=== PATIENT | male | born 1970 | race Caucasian/White ===

== ENCOUNTER → 2017-06-17 | Outpatient (CLI) | payer OTHER ==
--- NOTE | 2017-06-17 10:42 | PCVCIMAG ---
APPROVED REPORT Patient Location: Out-Patient Indications Stenosis Doppler Spectral Velocity Analysis PSV / EDVPSV / EDV ECA (R) 149 / 21 cm/sECA (L) 154 / 31 cm/s dICA (R) 61 / 25 cm/sdICA (L) 70 / 27 cm/s Maritza (R) 78 / 26 cm/smICA (L) 101 / 35 cm/s pICA (R) 79 / 26 cm/spICA (L) 109 / 31 cm/s Bulb (R) 123 / 29 cm/sBulb (L) 104 / 29 cm/s dCCA (R) 104 / 20 cm/sdCCA (L) 115 / 29 cm/s mCCA (R) 104 / 21 cm/smCCA (L) 109 / 30 cm/s Vert (R) 50 / 17 cm/sVert (L) 41 / 14 cm/s Findings The right carotid bulb has mild calcified plaque. The right proximal internal carotid artery shows <40% stenosis. The right common carotid artery shows no significant stenosis. The right external carotid artery shows no significant stenosis. The left carotid bulb has moderately plaque. The left proximal internal carotid artery shows <40% stenosis. The left common carotid artery shows no significant stenosis. The left external carotid artery shows no significant stenosis. Conclusion 1. Right internal carotid artery stenosis (<40%) 2. Left internal carotid artery stenosis (<40%) 3. Antegrade vertebral flow
--- NOTE | 2017-06-17 13:00 | PCVCIMAG ---
APPROVED REPORT Exam: Stress Echocardiogram Indication: ABN Calcium Score, , Hyperlipidemia, Family Hx Patient Location: Echo lab Stress Nurse: Shaneka Thomas RN Status: routine HR: 92 bpm Rhythm: NSR Procedure The patient underwent an Exercise Stress Test using the John Protocol. Blood pressure, heart rate, and EKG were monitored. An Echocardiogram was performed by bench repair technician in four stages in quad fashion. At peak stress, four selected images were obtained and placed side by side with resting images for comparison. Stress Test Details Stress Test: Exercise stress testing was performed using a John protocol. HR Resting HR: 92 bpmMax Heart Rate (APMHR): 175 bpm Max HR Achieved: 169 bpmTarget HR (85% APMHR): 148 bpm % of APMHR: 96 HR response to stress: Normal HR response to stress BP Resting BP: 138/76 mmHg Max BP: 180/102 mmHg ECG Resting ECG: Sinus Bradycardia, Sinus Rhythm Stress ECG: Sinus Rhythm Clinical Reason for Termination: Maximal effort, ST changes Stress Symptoms: Fatigue, Dyspnea Exercise duration: 11 min 14 sec Highest Stage Achieved: Stage 3: 3.4 mph at 14% grade. Exercise capacity: 13.70 METs Overall Exercise Capacity for Age: Normal Pre-Stress Echo The resting Echocardiogram showed normal left ventricular contractility with an estimated Ejection Fraction of about 55-60%. Normal wall motion in all segments on baseline images. Post-Stress Echo The stress Echocardiogram showed normal left ventricular contractility with an estimated Ejection Fraction of about 60-65%. Normal augmentation of wall motion in all segments on post stress images. Conclusion Clinical Response: Non-ischemic Exercise Capacity: Average Stress ECG Response: Non-ischemic Stress Echo Images: Non-ischemic Normal stress echocardiogram with maximal exercise stress. No clinical, EKG or echocardiographic evidence for ischemia. Other Information Study Quality: Good <Conclusion> Normal stress echocardiogram with maximal exercise stress. No clinical, EKG or echocardiographic evidence for ischemia.
== END | disposition home or self-care (01) ==
LOC: PCVCIMAG 09:26
PROVIDERS: ATTEND Internal Medicine Cardiovascular Disease
DX: I65.23 Occlusion and stenosis of bilateral carotid arteries (principal); R93.1 Abnormal findings on diagnostic imaging of heart and coronary circulation; E78.5 Hyperlipidemia, unspecified; I25.10 Atherosclerotic heart disease of native coronary artery without angina pectoris; I10 Essential (primary) hypertension; Z82.49 Family history of ischemic heart disease and other diseases of the circulatory system; Z79.82 Long term (current) use of aspirin
CPT/HCPCS: 93325; 93351; 93880